=== PATIENT | male | born 1980 | race Caucasian/White ===

== ENCOUNTER 2018-08-09 13:22 | Emergency (ER) | payer OTHER ==
[~2018-08-09] VITALS: Ht 165.1 cm; Wt 72.6 kg
[2018-08-09 13:40] VITALS: BP 116/67
--- NOTE | 2018-08-09 14:14 | NUR ---
PATIENT PRESENTS TO ED WITH ACCOMPANIED BY FAMILY C/O COUGH CONGESTION HEADACHE FATIGUE X1 WK DENIES N/V/D; SKIN IS PINK/WARM/DRY; AAOX4 WITH EVEN AND STEADY GAIT; LUNGS CLEAR BL; HR EVEN AND REGULAR; ; PATIENT STATES PAIN OF 0/10 AT THIS TIME; VSS; PATIENT POSITIONED FOR COMFORT; HOB ELEVATED; BEDRAILS UP X2; BED DOWN. ER MD MADE AWARE OF PT STATUS.
[2018-08-09] MEDS ORDERED: DEXAMETHASONE 10 MG/ML VIAL IM ONE (14:25)
[2018-08-09 14:33] VITALS: BP 133/78
--- NOTE | 2018-08-09 14:33 | NUR ---
Patient discharged with v/s stable. Written and verbal after care instructions given and explained. Patient alert, oriented and verbalized understanding of instructions. Ambulatory with steady gait. All questions addressed prior to discharge. ID band removed. Patient advised to follow up with PMD. Rx of ALBUTEROL/PROMETHAZINE/MEDROL given. Patient educated on indication of medication including possible reaction and side effects. Opportunity to ask questions provided and answered.
== END 2018-08-09 14:33 | disposition home or self-care (01) ==
LOC: MED 13:22
DX: J40 Bronchitis, not specified as acute or chronic (principal)
CPT/HCPCS: 96372; 99283; J1100